=== PATIENT | female | born 1990 | race Caucasian/White ===

== ENCOUNTER 2020-09-09 07:43 | Outpatient (CLI) | payer OTHER, SELFPAY ==
--- NOTE | 2020-10-09 12:20 | WPDHOMESLEEP ---
Sleep Study - Home Unattended Date of Study: 08/10/20 Ordering Provider: Mirian Dexter MD Interpreting Physician: Mirian Dexter MD Home Sleep Study Type: Apnea Link Air Height: 1.57 m Weight: 81.647 kg Body Mass Index: 32.9 Neck Circumference (inches): 15 [place]: 22 Reason for Sleep Study Hypersomnia Sleep History Ifrah Prieto has complaints of excessive sleepiness no matter how much sleep she gets. This has been going on for years. Others have told her she is lazy, mentally slow, or depressed due to her excessive need for sleep. She has a difficult time taking care of her activities of daily living due to the excessive amount of time she sleeps. She finds herself doing an activity and cannot remember when she started it, as if she woke up while in the middle of it. She has a difficult time paying attention to what is going on around her due to being so sleepy. She has no problem falling asleep, however she wakes up during the night. There is a family history others with sleep disorders including her mother who may have narcolepsy, a cousin with narcolepsy and TERE, an uncle with TERE, an aunt and nephew with insomnia. Antidepressants have worsened her sleepiness. Many medications have this effect on her. She does not snore. Others do not complain that she snores. She rarely awakens at night with heartburn, belching or coughing. She never awakens from sleep feeling short of breath, does not have trouble sleeping with a cold, does not gasp for breath at night, and does not sweat excessively at night or notice her heart pounding or beating irregularly at night. She constantly falls asleep in the day, occasionally involuntarily, and occasionally while driving. She frequently falls asleep during physical effort, and frequently falls asleep with strong emotion. She constantly has daytime difficulties due to excessive sleepiness. She frequently feels paralyzed on waking or falling asleep. She occasionally has vivid dream-like scenes on waking or falling asleep. She is not afraid to go to sleep. She rarely has nightmares, occasionally remembers her dreams. She does not have racing thoughts, feelings of sadness or depression, anxiety, muscular tension, or notice parts of her body jerking or kicking at night. She does not have aching or crawling feelings in her legs at night. She denies leg pain at night. She denies morning jaw pain, and she does not grind her teeth during sleep. She is not bothered by pain in the day, not is she awakened by pain during the night. She occasionally wakes up feeling stiff in the morning, never with sore muscles or with pain in the neck or spine. She has fatigue, headaches in the middle of the day (not the morning), memory problems, and concentration difficulties. Normal bedtime is 8:00 p.m. falling asleep quickly, waking 1-2 times at night or some nights, not at all. 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 She may stay awake a short while or longer, it varies. She wakes at 5:00 a.m. not feeling refreshed and stays in bed for 1-2 hours after waking up. She takes naps, and naps can be refreshing. She is drowsy for 4 hours or longer after waking. Habits: Never smoked, drinks caffeine 3 cups or 3-6 cans a day. No tobacco or recreational drugs. [facility] Past Medical History Medical History Acute depression Anemia Cervical cancer screening Chronic migraine without aura, intractable, without status migrainosus Depression Easy bruising Fatigue Hypersomnia Joint pain Family History Family History (Updated 10/09/20 @ 14:23 by Mirian Dexter MD) Father Diabetes mellitus Cancer Tumor Alcohol abuse Mother Mental illness in member of household Alcohol abuse Excessive daytime sleepiness Social History Social History Smoking status: Never smoker Substance use: never Med
[2020-10-09 14:48] VITALS: BMI 32.9
== END 2020-09-09 07:44 | disposition home or self-care (01) ==
LOC: ANHCSM 07:50
PROVIDERS: PCP Family Medicine; Visit Provider Internal Medicine Critical Care Medicine
DX: G47.10 Hypersomnia, unspecified (principal); G47.34 Idiopathic sleep related nonobstructive alveolar hypoventilation
CPT/HCPCS: 95806

== ENCOUNTER 2020-11-18 00:38 | Outpatient (CLI) | payer OTHER, SELFPAY ==
[2020-11-18 18:50] LABS: SARS-CoV-2 RNA PCR Negative
== END 2020-11-18 00:39 | disposition home or self-care (01) ==
LOC: ANHCOVIDDT 00:38
PROVIDERS: PCP Family Medicine; Visit Provider Internal Medicine Critical Care Medicine
DX: R68.89 Other general symptoms and signs (principal); Z20.822 Contact with and (suspected) exposure to COVID-19
CPT/HCPCS: C9803; U0003

== ENCOUNTER 2020-11-20 09:27 | Outpatient (CLI) | payer OTHER, SELFPAY ==
--- NOTE | 2020-12-30 10:01 | WPDSLEEPSTUD ---
Sleep Study Date of Study: 11/20/20 Ordering Provider: Mirian Dexter MD Interpreting Physician: Mirian Dexter MD Sleep Study Type: Polysomnogram Height: 1.57 m Weight: 81.647 kg Body Mass Index: 32.9 Neck Circumference: 38.1 cm [place]: 20 Reason for Sleep Study Hypersomnolence; 09/09/2020 Home sleep test; AHI 4.1, desaturation to 83% Sleep History Ifrah Prieto is a 30 year old female with severe hypersomnolence. She had a home sleep test on September 09, 2020 with an AHI of 4.1 with hypoxemia to 83%. She presents for a basic nocturnal polysomnogram followed by an MSLT to evaluate her profound hypersomnolence. She has lifelong excessive sleepiness, no matter how much sleep she gets. She cannot stay on task due to excessive sleepiness. She finds herself doing an activity and cannot remember when she started it, as if she woke up while in the middle of it. She has a difficult time paying attention to what is going on around her due to being so sleepy. She has no problem falling asleep, however she wakes up during the night. There is a family history with others with sleep disorders including her mother who may have narcolepsy, a cousin with narcolepsy and TERE, an uncle with TERE, an aunt and nephew with insomnia. Antidepressants have worsened her sleepiness. Many medications have this effect on her. She does not snore. Others do not complain that she snores. She rarely awakens at night with heartburn, belching or coughing. She never awakens from sleep feeling short of breath. She constantly has trouble sleeping with a cold. She never gasps for breath at night, does not sweat excessively at night or notice her heart pounding or beating irregularly at night. She constantly falls asleep in the day, occasionally involuntarily, and occasionally while driving. She does not fall asleep during physical effort. She constantly has daytime difficulties due to excessive sleepiness. She constantly feels paralyzed on waking or falling asleep, and constantly has vivid dream-like scenes on waking or falling asleep. She is not afraid to go to sleep. She occasionally has nightmares, and constantly remembers her dreams. She does not have racing thoughts, feelings of sadness, depression, or anxiety. She frequently has muscular tension. She does not notice parts of her body jerking or kicking at night. She does not have aching or crawling feelings in her legs at night. She denies leg pain at night. She denies morning jaw pain, and she does not grind her teeth during sleep. She is not bothered by pain in the day, not is she awakened by pain during the night. She occasionally wakes up feeling stiff in the morning with sore muscles, and frequenlty wakes with pain in the neck or spine. She has fatigue, headaches in the middle of the day (only occasionally in the morning), nightmares, and concentration difficulties. Normal bedtime is 8:00 p.m. falling asleep quickly, waking 1-2 times at night or some nights, not at all. 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 She may stay awake a short while or longer, it varies. When she wakes at night she may listen to music or have a snack. She wakes at 6:00 a.m. not feeling refreshed and stays in bed for 1-2 hours after waking up. She takes naps, and naps can be refreshing. She is drowsy for 4 hours or longer after waking. Habits: Never smoked, drinks caffeine 3 cups or 3-6 cans a day. No tobacco or recreational drugs. [facility] Past Medical History Medical History Acid reflux Acute depression Anemia Cervical cancer screening Chronic migraine without aura, intractable, without status migrainosus Depression Easy bruising Fatigue Hypersomnia Joint pain Family History Family History Father Diabetes mellitus Cancer Tumor Alcohol abuse Mother Mental illness in member of household Alcoho
[2021-01-03 10:57] VITALS: BMI 32.9
--- NOTE | 2021-01-03 11:01 | P.SLEEP_ITS ---
Sleep Study Date of Study: 11/21/20 Ordering Provider: Mirian Dexter MD Interpreting Physician: Mirian Dexter MD Sleep Study Type: Multiple Sleep Latency Test Height: 1.57 m Weight: 81.647 kg Body Mass Index: 32.9 Neck Circumference: 38.1 cm [place]: 20 Reason for Sleep Study hypersomnolence Sleep History See sleep history on the basic nocturnal polysomnogram the night before this study. The patient had greater than 6 hours of sleep, AHI was 3, and she proceeded to this multiple sleep latency test per protocol. [facility], [facility] Past Medical History Medical History Acid reflux Acute depression Anemia Cervical cancer screening Chronic migraine without aura, intractable, without status migrainosus Depression Easy bruising Fatigue Hypersomnia Joint pain Family History Family History Father Diabetes mellitus Cancer Tumor Alcohol abuse Mother Mental illness in member of household Alcohol abuse Excessive daytime sleepiness Social History Social History Smoking status: Never smoker Substance use: never Medications Home Medications Medication Instructions Recorded Confirmed Type famotidine 40 mg tablet 40 mg PO DAILY 06/21/20 11/11/20 History Sleep Procedure The recording montage for the MSLT includes central EEG (C3-A2, C4-A1) and occipital (O1-A2, O2-A1) derivations, left and right eye electrooculograms (EOGs), mental/submental electromyogram (EMG), and electrocardiogram (EKG). Nap 1 commenced at 7:26 a.m. Sleep onset at 4:56. No REM. Nap 1 was terminated at 7:46 a.m. The patient said that sleep occurred. The patient reported no dreaming. Time in bed 20 minutes 24 seconds Nap 2 commenced at 9:26 a.m. Sleep onset at 6:43. No REM. Nap 2 was terminated at 9:48 a.m. The patient said that sleep occurred. The patient reported dreaming. Time in bed 21 minutes 50 seconds Nap 3 commenced at 11:29 a.m. Sleep onset at 3:53. No REM Nap 3 was terminated at 11:49 a.m.The patient said that sleep occurred. The patient reported dreaming. Time in bed 19:18. Nap 4 commenced at 1:29 p.m. No sleep; sleep onset 20 min. Nap 4 was terminated at 1:50 p.m. The patient said that sleep occurred. The patient reported dreaming. Time in bed 20:53 Nap 5 commenced at 3:29 p.m. No sleep; sleep onset 20 min. Nap 5 was terminated at 3:49 p.m. The patient said that sleep occurred/did not occur. The patient reported dreaming. Time in bed 19:58 The mean sleep latency is 11 min 6 seconds. The patient perceived sleep on 4 naps and slept on 3 of 5 nap opportunities. Alpha intrusion was noted on naps 1, 2 and 3. Sleep Architecture NA Periodic Limb Movements NA Oximetry Data NA Snoring Profile NA Cardiac Profile NA EEG Profile NA Assessment and Plan Assessment and Plan (1) Hypersomnia: Code(s): G47.10 - Hypersomnia, unspecified Status: Acute Assessment and Plan: This is a normal mean sleep latency test. The mean sleep latency is 11 minutes 6 seconds. This is in the normal range. Alpha intrusion was noted on naps 1, 2 and 3.
[2021-01-03 13:30] VITALS: BMI 32.9
== END 2020-11-21 07:00 | disposition home or self-care (01) ==
LOC: ANHCSM 09:30
PROVIDERS: PCP Family Medicine; Visit Provider Internal Medicine Critical Care Medicine
DX: G47.10 Hypersomnia, unspecified (principal); G47.34 Idiopathic sleep related nonobstructive alveolar hypoventilation
CPT/HCPCS: 95805; 95810